=== PATIENT | female | born 1980 | race Two or more races ===

== ENCOUNTER 2019-12-23 19:54 | Emergency (ER) | payer SELFPAY ==
[~2019-12-23] VITALS: Ht 160 cm; Wt 80.0 kg
[2019-12-23] MEDS ORDERED: DICYCLOMINE HCL 10 MG CAPSULE PO STA (21:11)
[2019-12-23] MEDS ORDERED: MORPHINE SULFATE 10 MG/ML VIAL. IV STA (21:11)
[2019-12-23] MEDS ORDERED: ONDANSETRON PF 4 MG/2 ML VIAL. IV ONE (21:15)
[2019-12-23] MEDS ORDERED: IV NORMAL SALINE 1000ML BAG 1,000 ML IV ONE (21:15)
[2019-12-23 21:19] LABS: BASO % 0 % (0-3); EOS # 0.1 x10^3/uL (0.0-0.7); EOS % 1 % (0-3); HEMATOCRIT 39.9 % (36.0-47.0); HEMOGLOBIN 13.5 g/dL (12.0-15.5); LYMPH # 2.3 x10^3/uL (1.0-4.8); LYMPH % 28 % (24-48); MEAN CORPUSCULAR HEMOGLOBIN 29 pg (25-35); MEAN CORPUSCULAR HGB CONC 34 g/dL (31-37); MEAN CORPUSCULAR VOLUME 87 fL (79-100); MONO # 0.7 x10^3/uL (0.0-1.1); MONO % 8 % (0-9); NEUT # 5.4 x10^3/uL (1.8-7.7); NEUT % 64 % (31-73); PLATELET COUNT 242 x10^3/uL (140-400); RED CELL DISTRIBUTION WIDTH 13.9 % (11.5-14.5); WHITE BLOOD COUNT 8.5 x10^3/uL (4.0-11.0)
[2019-12-23 21:20] LABS: BILIRUBIN,URINE NEGATIVE (NEG); CLARITY,URINE CLEAR; COLOR,URINE YELLOW; NITRITE,URINE NEGATIVE (NEG); PH,URINE 5.5; PROTEIN,URINE NEGATIVE (NEG-TRACE); UROBILINOGEN,URINE 0.2 mg/dL (0.2 mg/dL)
--- NOTE | 2019-12-23 21:23 | PHYS DOC ---
Past Medical History Past Medical History: Depression, Hypertension, Migraines (DANAY POZO APRN) Past Surgical History: No Surgical History (DANAY POZO APRN) Smoking Status: Never Smoker Alcohol Use: None (DANAY POZO APRN) Attending Signature I have participated in the care of this patient and I have reviewed and agree with all pertinent clinical information above including history, exam, and recommendations. (DESTINEE CAMARGO MD) Adult General Chief Complaint Chief Complaint: ABDOMINAL PAIN HPI HPI Patient is a 39 year old female who presents with fever, nausea, vomiting, diarrhea, and abdominal pain has been ongoing since Saturday night. Has had loss of appetite. Patient states abdominal pain is located in the periumbilical region of her abdomen. Patient states that her pain is intermittent nature and does drink 5-10 in severity. Denies any additional symptoms. Complete ROS were reviewed and found to be within normal limits, except as documented in the HPI (DANAY POZO APRN) Current Medications Current Medications Current Medications Medications (Trade) Dose Ordered Sig/Alysha Start Time Stop Time Status Last Admin Dose Admin Dicyclomine HCl (Bentyl) 10 mg 1X STAT 12/23/19 21:11 12/23/19 21:14 DC 12/23/19 21:36 10 MG Info (CONTRAST GIVEN -- Rx MONITORING) 1 each PRN DAILY PRN 12/23/19 21:45 12/23/19 22:57 DC Iohexol (Omnipaque 300 Mg/ml) 75 ml 1X ONCE 12/23/19 21:45 12/23/19 21:46 DC 12/23/19 21:53 75 ML Morphine Sulfate (Morphine Sulfate) 5 mg 1X STAT 12/23/19 21:11 12/23/19 21:14 DC 12/23/19 21:38 5 MG Ondansetron HCl (Zofran) 4 mg 1X ONCE 12/23/19 21:15 12/23/19 21:16 DC 12/23/19 21:37 4 MG Sodium Chloride 1,000 ml @ 1,000 mls/hr 1X ONCE 12/23/19 21:15 12/23/19 22:14 DC 12/23/19 21:15 1,000 MLS/HR (DESTINEE CAMARGO MD) Allergies Allergies Allergies Coded Allergies Type Severity Reaction Last Updated Verified No Known Drug Allergies 12/23/19 No (DESTINEE CAMARGO MD) Physical Exam Physical Exam Constitutional: Well developed, well nourished, no acute distress, non-toxic appearance. [] HENT: Normocephalic, atraumatic, bilateral external ears normal, oropharynx moist, no oral exudates, nose normal. [] Eyes: PERRLA, EOMI, conjunctiva normal, no discharge. [] Neck: Normal range of motion, no tenderness, supple, no stridor. [] Cardiovascular:Heart rate regular rhythm, no murmur [] Lungs & Thorax: Bilateral breath sounds clear to auscultation [] Abdomen: Bowel sounds normal, soft, periumbilical abdominal pain, no masses, no pulsatile masses. [] Skin: Warm, dry, no erythema, no rash. [] Neurologic: Alert and oriented X 3, normal motor function, normal sensory function, no focal deficits noted. [] Psychologic: Affect normal, judgement normal, mood normal. [] (DANAY POZO APRN) Current Patient Data Vital Signs Vital Signs Date Time Temp Pulse Resp B/P (MAP) Pulse Ox O2 Delivery O2 Flow Rate FiO2 12/23/19 22:32 72 143/96 (112) 96 Room Air 12/23/19 21:38 18 12/23/19 20:30 98.4 98.4 (DESTINEE CAMARGO MD) Lab Values Laboratory Tests Test 12/23/19 20:08 12/23/19 20:12 12/23/19 20:42 Urine Collection Type Void Urine Color Yellow Urine Clarity Clear Urine pH 5.5 Urine Specific [place] >=1.030 Urine Protein Negative mg/dL (NEG-TRACE) Urine Glucose (UA) Negative mg/dL (NEG) Urine Ketones (Stick) Negative mg/dL (NEG) Urine Blood Trace (NEG) Urine Nitrite Negative (NEG) Urine Bilirubin Negative (NEG) Urine Urobilinogen Dipstick 0.2 mg/dL (0.2 mg/dL) Urine Leukocyte Esterase Negative (NEG) Urine RBC Occ /HPF (0-2) Urine WBC Occ /HPF (0-4) Urine Squamous Epithelial Cells Occ /LPF Urine Bacteria 0 /HPF (0-FEW) Urine Mucus Mod /LPF POC Urine HCG, Qualitative Hcg negative (Negative) White Blood Count 8.5 x10^3/uL (4.0-11.0) Red Blood Count 4.60 x10^6/uL (3.50-5.40) Hemoglobin 13.5 g/dL (12.0-15.5) Hematocrit 39.9 % (36.0-47.0) Mean Corpuscular Volume 87 fL (79-100) Mean Corpuscular Hemoglobin 29 pg (25-35) Mean Corpuscular Hemoglobin Concent 34 g/dL (31-37) Red Cell Distribution Width 13.9 % (11.5-14.5) Platelet Count 242 x10^3/uL (140-400) Neutrophils (%) (Auto) 64 % (31-73) Lymphocytes (%) (Auto) 28 % (24-48) Monocytes (%) (Auto) 8 % (0-9) Eosinophils (%) (Auto) 1 % (0-3) Basophils (%) (Auto) 0 % (0-3) Neutrophils # (Auto) 5.4 x10^3/uL (1.8-7.7) Lymphocytes # (Auto) 2.3 x10^3/uL (1.0-4.8) Monocytes # (Auto) 0.7 x10^3/uL (0.0-1.1) Eosinophils # (Auto) 0.1 x10^3/uL (0.0-0.7) Basophils # (Auto) 0.0 x10^3/uL (0.0-0.2) Sodium Level 142 mmol/L (136-145) Potassium Level 3.4 mmol/L (3.5-5.1) L Chloride Level 107 mmol/L (98-107) Carbon Dioxide Level 27 mmol/L (21-32) Anion Gap 8 (6-14) Blood Urea Nitrogen 13 mg/dL (7-20) Creatinine 0.7 mg/dL (0.6-1.0) Estimated GFR (Cockcroft-Gault) 92.2 BUN/Creatinine Ratio 19 (6-20) Glucose Level 94 mg/dL (70-99) Calcium Level 8.1 mg/dL (8.5-10.1) L Total Bilirubin 0.2 mg/dL (0.2-1.0) Aspartate Amino Transferase (AST) 5 U/L (15-37) L Alanine Aminotransferase (ALT) 15 U/L (14-59) Alkaline Phosphatase 62 U/L (46-116) Total Protein 6.8 g/dL (6.4-8.2) Albumin 3.2 g/dL (3.4-5.0) L Albumin/Globulin Ratio 0.9 (1.0-1.7) L Lipase 76 U/L (73-393) Laboratory Tests 12/23/19 20:42 Laboratory Tests 12/23/19 20:42 (DESTINEE CAMARGO MD) EKG EKG [] (DANAY POZO APRN) Radiology/Procedures Radiology/Procedures [][address] [place] [address] IMAGING REPORT Signed PATIENT: JACOBO MONTE ACCOUNT: [id number] : 1980 LOCATION: ER AGE: 39 SEX: F EXAM STATUS: REG ER ORD. PHYSICIAN: DANAY POZO APRN REASON: periumbilical abdominal pain PROCEDURE: CT ABD PELV W/ IV CONTRST ONLY Exam: CT of abdomen and pelvis with contrast INDICATION: Periumbilical abdominal pain TECHNIQUE: Sequential axial images through the abdomen and pelvis obtained following the administration of 75 mL of Omni 300 IV contrast. Sagittal and coronal reformatted images were reconstructed from the axial data and reviewed. Comparisons: None FINDINGS: Heart size is normal. No pericardial effusion. Visualized lung bases are clear. No pleural effusion. Liver, spleen, pancreas, gallbladder and adrenals are unremarkable. Kidneys demonstrate symmetric enhancement. No perinephric inflammation or hydronephrosis. No renal or ureteral calculi are identified. Bladder is decompressed not well evaluated. Uterus is not enlarged. No abnormal adnexal mass. There is wall thickening involving numerous loops of small bowel. No evidence for obstruction. Remainder of the large and small bowel are unremarkable. Appendix is normal. No free intra-abdominal air or fluid. Abdominal aorta has a normal course and caliber. Abdominal vasculature is patent. No enlarged intra-abdominal lymph nodes are identified. No suspicious osseous lesions or acute fractures. IMPRESSION: Diffuse wall thickening involving numerous loops of small bowel favored represent enteritis. This may be infectious or inflammatory in etiology. Exposure: One or more of the following in the visualized dose reduction techniques were utilized for this examination: 1. Automated exposure control 2. Adjustment of the MA and/or KV according to patient size 3. Use of iterative of reconstructive technique Electronically signed by: Rios Carrasquillo MD (12/23/2019 9:59 PM) [facility] DICTATED and SIGNED BY: RIOS CARRASQUILLO MD DATE: 12/23/192158 (DANAY POZO APRN) Course & Med Decision Making Course & Med Decision Making Pertinent Labs and Imaging studies reviewed. (See chart for details) Will get labs, CT, and give supportive care. Labs are unremarkable. CT shows Enteritis. Likely has a viral gastroenteritis. Will prescribe nausea medication and Bentyl for home. (DANAY POZO APRN) Dragon Disclaimer Dragon Disclaimer This electronic medical record was generated, in whole or in part, using a voice recognition dictation system. (DANAY POZO APRN) Departure Departure Impression: Primary Impression: Nausea & vomiting Disposition: HOME, SELF-CARE Condition: STABLE Referrals: NO PCP (PCP) Patient Instructions: Viral Gastroenteritis Additional Instructions: Thank you for visiting [facility]. We appreciate you trusting us with your care. If any additional problems come up don't hesitate to return to visit us. Please follow up with your primary care provider so they can plan additional care if needed and know about the problem that you had. If symptoms worsen come back to the Emergency Department. Any concerning symptoms that start such as chest pain, shortness of air, weakness or numbness on one side of the body, running high fevers or any other concerning symptoms return to the ER. Please fill your medications at any pharmacy and follow the prescription instructions. Scripts Ondansetron (ONDANSETRON ODT) 4 Mg Tab.rapdis 1 TAB PO PRN Q6-8HRS PRN for NAUSEA, #20 TAB Prov: DANAY POZO APRN 12/23/19 Dicyclomine Hcl (DICYCLOMINE HCL) 10 Mg Capsule 1 CAP PO PRN Q6HRS PRN for PAIN, #20 CAP 0 Refills Prov: DANAY POZO APRN 12/23/19 Problem Qualifiers Primary Impression: Nausea & vomiting Vomiting type: unspecified Vomiting Intractability: unspecified Qualified Codes: R11.2 - Nausea with vomiting, unspecified DANAY POZO APRN Dec 23, 2019 21:23 DESTINEE CAMARGO MD Dec 23, 2019 23:54
[2019-12-23 21:27] LABS: BACTERIA,URINE 0 /HPF (0-FEW); RBC,URINE OCC /HPF (0-2); SQUAMOUS EPITHELIAL CELL,UR OCC /LPF; WBC,URINE OCC /HPF (0-4)
[2019-12-23 21:35] LABS: CALCIUM 8.1 mg/dL (8.5-10.1); CREATININE 0.7 mg/dL (0.6-1.0); GFR 92.2; POTASSIUM 3.4 mmol/L (3.5-5.1)
[2019-12-23 21:41] LABS: ALBUMIN 3.2 g/dL (3.4-5.0); ALBUMIN/GLOBULIN RATIO 0.9 (1.0-1.7); TOTAL BILIRUBIN 0.2 mg/dL (0.2-1.0); TOTAL PROTEIN 6.8 g/dL (6.4-8.2)
[2019-12-23] MEDS ORDERED: IOHEXOL 300 MG/ML 100ML VIAL. IV ONE (21:45)
[2019-12-23] MEDS ORDERED: CONTRAST GIVEN. MC PRN (21:45)
--- NOTE | 2019-12-23 22:02 | RAD ---
Exam: CT of abdomen and pelvis with contrast INDICATION: Periumbilical abdominal pain TECHNIQUE: Sequential axial images through the abdomen and pelvis obtained following the administration of 75 mL of Omni 300 IV contrast. Sagittal and coronal reformatted images were reconstructed from the axial data and reviewed. Comparisons: None FINDINGS: Heart size is normal. No pericardial effusion. Visualized lung bases are clear. No pleural effusion. Liver, spleen, pancreas, gallbladder and adrenals are unremarkable. Kidneys demonstrate symmetric enhancement. No perinephric inflammation or hydronephrosis. No renal or ureteral calculi are identified. Bladder is decompressed not well evaluated. Uterus is not enlarged. No abnormal adnexal mass. There is wall thickening involving numerous loops of small bowel. No evidence for obstruction. Remainder of the large and small bowel are unremarkable. Appendix is normal. No free intra-abdominal air or fluid. Abdominal aorta has a normal course and caliber. Abdominal vasculature is patent. No enlarged intra-abdominal lymph nodes are identified. No suspicious osseous lesions or acute fractures. IMPRESSION: Diffuse wall thickening involving numerous loops of small bowel favored represent enteritis. This may be infectious or inflammatory in etiology. Exposure: One or more of the following in the visualized dose reduction techniques were utilized for this examination: 1. Automated exposure control 2. Adjustment of the MA and/or KV according to patient size 3. Use of iterative of reconstructive technique Electronically signed by: Rios Ernandez MD (12/23/2019 9:59 PM) [facility]
[2019-12-23] MEDS ORDERED: ONDA4TAB12 PO (22:15)
[2019-12-23] MEDS ORDERED: DICY10CA3 PO (22:15)
[2019-12-23 22:32] VITALS: BP 143/96
== END 2019-12-23 22:56 | disposition home or self-care (01) ==
LOC: ER 19:54
DX: R11.2 Nausea with vomiting, unspecified (principal); R19.7 Diarrhea, unspecified; R50.9 Fever, unspecified; R10.33 Periumbilical pain; F32.9 Major depressive disorder, single episode, unspecified; I10 Essential (primary) hypertension; G43.909 Migraine, unspecified, not intractable, without status migrainosus; Z79.899 Other long term (current) drug therapy
CPT/HCPCS: 36415; 74177; 80053; 81001; 81025; 83690; 85025; 96361; 96374; 96375; 99285; J2270; J2405; J7030; Q9967